=== PATIENT | female | born 1985 | race Caucasian/White ===

== ENCOUNTER → 2017-03-04 | Outpatient (CLI) | payer OTHER | LOC: FIMAGING 07:24 | PROVIDERS: ATTEND Obstetrics & Gynecology | DX: O35.8XX0 Maternal care for other (suspected) fetal abnormality and damage, not applicable or unspecified (principal); Z3A.21 21 weeks gestation of pregnancy ==

== ENCOUNTER 2017-07-11 18:51 | Inpatient (IN) | payer OTHER ==
[2017-07-11] MEDS ORDERED: OLIVE OIL 118 ML BTL MISC PRN (19:42)
[2017-07-11] MEDS ORDERED: OXYTOCIN 20 UNIT in LR 1,000 ML IV PRN (19:42)
[2017-07-11] MEDS ORDERED: MISOPROSTOL 200 MCG TAB PR PRN (19:42)
[2017-07-11] MEDS ORDERED: LR 1,000 ML IV PRN (19:42)
[2017-07-11] MEDS ORDERED: TERBUTALINE SULFATE 1 MG/ML VIAL IV PRN (19:42)
[2017-07-11] MEDS ORDERED: EPSOM SALT 454 GM TP PRN (19:42)
[2017-07-11] MEDS ORDERED: LR 500 ML IV PRN (23:11)
[2017-07-11] MEDS ORDERED: OXYTOCIN 30 UNIT in NS 500 ML IV SCH (23:15)
[2017-07-11 23:35] LABS: PLATELET COUNT 252 10^3/uL (150-400)
--- NOTE | 2017-07-11 23:41 | GHP ---
[f rep st] PREOP HISTORY AND PHYSICAL DATE OF ADMISSION: 07/11/2017 HISTORY UPON ADMISSION: The patient is a 31-year-old, G2, A1, at 39+ weeks' gestation with an estimated due date of 07/15/2017 established by an 8 week ultrasound that was not in agreement with her last menstrual period. The patient presents to Labor and Delivery complaining of spontaneous rupture of membranes at 5 a.m. The patient really has not had a regular contraction pattern at this point but has had contractions slowly building but irregular throughout the afternoon. They are still mild. The patient had some pink- tinged fluid earlier but not now. She has continued to have leakage throughout the day. Good movement. GBS culture was negative. HISTORY: The patient has been with [facility] since 8 weeks ' gestation. Patient had an ultrasound for confirmation of viability that identified the size/date discrepancy. The patient had thorough genetic testing early in the . Patient's 20 week ultrasound revealed a arrhythmia consistent with PACs. She had a followup ultrasound with [facility], which revealed normal anatomy and no sign of arrhythmia at the time. Estimated weight was the 51st percentile. Patient had choroid plexus cysts but these resolved spontaneously. Followup ultrasound at 31 weeks, due to marginal CI, showed 80th percentile estimated weight. The baby's right kidney appeared in the upper limits of normal size but otherwise reassuring. LABS: Maternal blood type B positive with negative antibody screen. RPR nonreactive. Rubella immune. Hepatitis B surface antigen negative. HIV negative. Thyroid has been tested several times in and this has been in the normal range. Parvo virus is immune. Initial hematocrit was 34%, in mid was 36%, with more recent check at 39%. Urinalysis and culture were negative. Pap smear normal. Gonorrhea and chlamydia negative. Verified testing was negative. One-hour Glucola normal. GBS culture was negative. 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 Abnormal Pap smear in college with colposcopy and negative Pap smear since. History of asthma as a child. Patient with a history of eating disorder, ages 11-13, as well as a history of anxiety and depression. Patient has a psychiatrist, Dr. Storm, here in town. She was on Effexor at the onset of but tapered down and stopped this by the second trimester. She has been feeling fine off medication. PAST FAMILY HISTORY: Significant for a cousin with spina bifida and a cousin with PKU. These were genetically assessed for with the standard carrier testing and were negative. PAST SURGICAL HISTORY: Odontectomy, D and C. PAST OBSTETRIC HISTORY: In December 2014, a partial molar , which was managed by a d and C. CURRENT MEDICATIONS: Synthroid 25 mcg a day, vitamins with iron, vitamin B6, additional iron supplement. ALLERGIES: The patient has no known drug allergies. SOCIAL HISTORY: The patient is , lives with her , Alcon. 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 Patient smoked but discontinued 10 years ago. Patient has had no alcohol during the and no illicit drug use. PHYSICAL EXAMINATION: GENERAL: Upon admission, the patient is a well-developed , well-nourished, white female, in no signs of physical discomfort, but does appear a little anxious. VITAL SIGNS: The patient is afebrile at 37.4, and blood pressure is 130s over 80s. See full details with nursing documentation. heart tones reveal baseline in the 140s with good variability and accelerations. No decelerations noted. Contractions are very irregular, from 5 -10 minutes, and palpably mild. Cervix was checked and the patient is 4 cm dilated and 90% at 0 station. Blood-tinged fluid. EXTREMITIES: Nontender with no edema. ASSESSMENT: Intrauterine at 39+ weeks' gestation, spontaneous rupture of membranes approximately 18 hours ago. GBS negative. Borderline blood pressures, but patient admits to being anxious. Will check - induced hypertension labs for reassurance and continue watching the blood pressure. Mild hypothyroidism, stable on Synthroid. History of anxiety and depression and has weaned off her Effexor. Patient knows she is at more risk for depression and will keep close followup with her psychiatrist. The patient had hoped for a natural progress of labor but one is not rapidly picked up after spontaneous rupture. The patient will try nipple stim and then begin Pitocin if no results. /[id number]/MODL MTDD
[2017-07-12] MEDS ORDERED: LIDOCAINE 1% 300 MG/30 ML SDV ONE (02:46)
[2017-07-12] MEDS ORDERED: TERBUTALINE SULFATE 1 MG/ML VIAL ONE (02:47)
[2017-07-12] MEDS ORDERED: OXYTOCIN 10 UNIT/ML VIAL ONE ×2 (02:47→17:03)
[2017-07-12] MEDS ORDERED: OLIVE OIL 118 ML BTL ONE (02:47)
[2017-07-12] MEDS ORDERED: MISOPROSTOL 200 MCG TAB ONE (02:47)
[2017-07-12] MEDS ORDERED: AMMONIA AROMATIC 1 EACH AMP IH ONE (02:47)
[2017-07-12] MEDS ORDERED: BUPIVACAINE 0.25% 30 ML SDV ONE (07:44)
[2017-07-12] MEDS ORDERED: PHENYLEPHRINE HCL 100 MCG/ML SYR ONE (07:44)
[2017-07-12] MEDS ORDERED: fentaNYL 100 MCG/2 ML INJ ONE (07:45)
--- NOTE | 2017-07-12 08:35 | PREANESOB ---
Obstetric Pre-Anesthesia Info - General Info Proposed Procedure: Labor and delivery with pitocin. : 2 Para: 0 ESTELLA: 07/14/17 Gestational Age: 39 week(s) and 4 day(s) - Info Status: Full Term Monitors: External FHR Pattern: Reassuring - Labor Status Cervical Dilation per last OB SVE: 4 Pitocin: In Use Indications for Labor Analgesia: Induction of Labor, Pain Control Labor Epidural: Proposed Anesthesia ROS: Prior D&C and wisdom teeth removal. Allergies/Adverse Reactions: Allergy/AdvReac Type Severity Reaction Status Date / Time No Known Allergies Allergy Unverified 12/31/14 06:27 Home Medications: Medication Instructions Recorded 1 tab PO DAILY 12/31/14 Iron,Carbonyl [Feosol] 1 tab PO DAILY 07/11/17 Levothyroxine [Synthroid 25 mcg 1 tab PO DAILY 07/11/17 (*)] Visit Medications: Generic Name Dose Route Start Last Admin Trade Name Freq PRN Reason Stop Dose Admin Lactated Ringer's 1,000 mls @ 0 mls/hr 07/11/17 19:42 07/12/17 02:07 Lr IV 07/12/17 19:41 1,000 mls PRN PRN Administration SEE PROTOCOL CONDITIONS Protocol Per Protocol Oxytocin 20 unit/ Lactated 1,002 mls @ 150 mls/hr 07/11/17 19:42 Ringer's IV PRN PRN Post- bleeding Lactated Ringer's 500 mls @ 500 mls/hr 07/11/17 23:11 Lr IV 07/12/17 23:11 PRN PRN Maternal Hypotension Oxytocin 30 unit/ Sodium 503 mls @ 0 mls/hr 07/11/17 23:15 07/12/17 02:07 Chloride IV 01/07/18 23:14 503 mls CONT LORETO Administration Protocol Per Protocol Ibuprofen 600 mg 07/11/17 19:42 Motrin PO 01/07/18 19:41 Q6HRS PRN post , inflammation Levothyroxine Sodium 25 mcg 07/12/17 09:00 Synthroid PO 01/08/18 08:59 DAILY LORETO Magnesium Sulfate 454 gm 07/11/17 19:42 Epsom Salt TP 01/07/18 19:41 Q1H PRN perineal discomfort Misoprostol 800 - 1,000 mcg 07/11/17 19:42 Cytotec WA ONCE PRN Vaginal Atony/Bleeding Risco Oil 118 ml 07/11/17 19:42 Sweet Oil MISC 01/07/18 19:41 ONCE PRN perineal massage Terbutaline Sulfate 0.25 mg 07/11/17 19:42 Brethine IV 01/07/18 19:41 ONCE PRN Tachysystole Discontinued Medications Generic Name Dose Route Start Last Admin Trade Name Freq PRN Reason Stop Dose Admin Ammonia (Aromatic Spirit) Confirm 07/12/17 02:47 Ammonia Aromatic Administered 07/12/17 02:48 Dose 1 each IH .STK-MED ONE Bupivacaine HCl Confirm 07/12/17 07:44 Sensorcaine 0.25% Sdv Administered 07/12/17 07:45 Dose 30 ml .ROUTE .STK-MED ONE Fentanyl Confirm 07/12/17 07:45 Sublimaze Administered 07/12/17 07:46 Dose 100 mcg .ROUTE .STK-MED ONE Lidocaine HCl Confirm 07/12/17 02:46 Lidocaine Hcl 1% Administered 07/12/17 02:47 Dose 300 mg .ROUTE .STK-MED ONE Misoprostol Confirm 07/12/17 02:47 Cytotec Administered 07/12/17 02:48 Dose 1,000 mcg .ROUTE .STK-MED ONE Risco Oil Confirm 07/12/17 02:47 Sweet Oil Administered 07/12/17 02:48 Dose 118 ml .ROUTE .STK-MED ONE Oxytocin Confirm 07/12/17 02:47 Pitocin Administered 07/12/17 02:48 Dose 40 unit .ROUTE .STK-MED ONE Phenylephrine HCl Confirm 07/12/17 07:44 Neosynephrine Administered 07/12/17 07:45 Dose 1,000 mcg .ROUTE .STK-MED ONE Terbutaline Sulfate Confirm 07/12/17 02:47 Brethine Administered 07/12/17 02:48 Dose 1 mg .ROUTE .STK-MED ONE - Anesthesia History Response to Local Anesthetics: Normal Anesthesia & Operative History: No Prior Problems Family Anesthesia History: Negative - Social History Substance Use/Abuse: Denies - Vital Signs Blood Pressure: 136/74 Heart Rate: 93 Height/Weight (Nursing): Height 154.94 cm Weight 80.286 kg - Focused Exam Neck exam: FROM Mallampati Score: Class 1 Mouth exam: normal dental/mouth exam Pulmonary: no respiratory distress Cardiovascular: regular rate and rhythym Labs: 07/11/17 23:00 07/11/17 23:00 Patient ABO/Rh B POSITIVE 07/11/17 23:00 Uric Acid 2.5 mg/dL (2.5-6.8) 07/11/17 23:00 Total Bilirubin 0.6 mg/dL (0.1-1.4) 07/11/17 23:00 Conjugated Bilirubin 0.3 mg/dL (0.0-0.5) 07/11/17 23:00 Unconjugated Bilirubin 0.3 mg/dL (0.0-1.1) 07/11/17 23:00 AST 23 IU/L (14-46) 07/11/17 23:00 ALT 27 IU/L (9-52) 07/11/17 23:00 Lactate Dehydrogenase 461 IU/L (313-618) 07/11/17 23:00 - Plan Anesthetic Plan: ORA Consent Signed and on Chart: Yes Patient/Guardian Understands and Agrees to Plan: Yes Urgent/Emergent Case: Brendon ortiz completed preop but documented later for safe timely pt care
[2017-07-12] MEDS ORDERED: ONDANSETRON 4 MG/2 ML VIAL IVP PRN (08:36)
[2017-07-12] MEDS ORDERED: PHENYLEPHRINE HCL 100 MCG/ML SYR IVP PRN (08:36)
--- NOTE | 2017-07-12 08:36 | POSTANESTH ---
Post Anesthetic Evaluation Cardiovascular Status: Normal, Stable, Similar to Pre-Op Cond Respiratory Status: Normal, Stable, Similar to Pre-op Cond. Level of Consciousness/Mental Status: Can Participate in Eval, Alert and Oriented Pain Control: Adequate, Prn Tx Ordered Nausea/Vomiting Control: Adequate, Prn Tx Ordered Complications Possibly Related to Anesthesia: None Noted
[2017-07-12] MEDS ORDERED: fentaNYL 2MCG/ML/BUP 0.1% RTU 100 ML EP SCH (09:00)
[2017-07-12] MEDS ORDERED: LR 500 ML IV SCH (09:00)
[2017-07-12] MEDS ORDERED: fentaNYL 200 MCG, BUPIVACAINE 0.5% 20 ML in NS 100 ML EP SCH (09:00)
--- NOTE | 2017-07-12 09:15 | OBPROG ---
Labor Progress Note Assessment/Plan: Assessment:cat 2 occasional lates will give fluid to assist decreased pitocin to 6 mu contractions q 2-3 tachsystole exam 7/100/0 denies pain epidural working well arom forebag bloody fluid Plan:expectant management 07/12/17 09:15 Subjective/Intrapartum Course: 07/12/17 09:12 Doing well feeling better after the epidural denies pain Objective: 07/11/17 23:00 07/11/17 23:00 Patient ABO/Rh B POSITIVE 07/11/17 23:00 Uric Acid 2.5 mg/dL (2.5-6.8) 07/11/17 23:00 Total Bilirubin 0.6 mg/dL (0.1-1.4) 07/11/17 23:00 Conjugated Bilirubin 0.3 mg/dL (0.0-0.5) 07/11/17 23:00 Unconjugated Bilirubin 0.3 mg/dL (0.0-1.1) 07/11/17 23:00 AST 23 IU/L (14-46) 07/11/17 23:00 ALT 27 IU/L (9-52) 07/11/17 23:00 Lactate Dehydrogenase 461 IU/L (313-618) 07/11/17 23:00 Temp Pulse Resp BP Pulse Ox 93 136/74 H 07/12/17 08:35 07/12/17 08:35 - SVE Dilation (cm): 7 Effacement (%): 100 Station: 0 Membranes: AROM, SROM Amniotic Fluid Color: Clear - Contraction Pattern Assessment Current Contraction Pattern: Regular - FHR Assessment [place] FHR (bpm): 135 FHR Pattern Variability: Moderate FHR Category: 2 - Procedures Non-surgical Procedures: Amniotomy Oxytocin Orders Assessment - Pre-Induction/Augmentation Assessment Gestational Age: 39 week(s) and 4 day(s) ICD10 Worksheet Patient Problems: Problems Problem Status Onset Rupture of membranes with clear amniotic fluid Acute
--- NOTE | 2017-07-12 11:32 | OBPROG ---
Labor Progress Note Assessment/Plan: Assessment:cat 2 decreased pitocin to 8 mu contractions q 2-3 tachsystole exam 10/100/+3 denies pain epidural working well febrile 38 degrees will begin pushing Plan:expectant management 07/12/17 09:15 07/12/17 11:30 Subjective/Intrapartum Course: 07/12/17 09:12 Doing well feeling better after the epidural denies pain Objective: 07/11/17 23:00 07/11/17 23:00 Patient ABO/Rh B POSITIVE 07/11/17 23:00 Uric Acid 2.5 mg/dL (2.5-6.8) 07/11/17 23:00 Total Bilirubin 0.6 mg/dL (0.1-1.4) 07/11/17 23:00 Conjugated Bilirubin 0.3 mg/dL (0.0-0.5) 07/11/17 23:00 Unconjugated Bilirubin 0.3 mg/dL (0.0-1.1) 07/11/17 23:00 AST 23 IU/L (14-46) 07/11/17 23:00 ALT 27 IU/L (9-52) 07/11/17 23:00 Lactate Dehydrogenase 461 IU/L (313-618) 07/11/17 23:00 Temp Pulse Resp BP Pulse Ox 93 136/74 H 07/12/17 08:35 07/12/17 08:35 - SVE Membranes: AROM, SROM Amniotic Fluid Color: Clear - Contraction Pattern Assessment Current Contraction Pattern: Regular - Procedures Non-surgical Procedures: Amniotomy Oxytocin Orders Assessment - Pre-Induction/Augmentation Assessment Gestational Age: 39 week(s) and 4 day(s) ICD10 Worksheet Patient Problems: Problems Problem Status Onset Rupture of membranes with clear amniotic fluid Acute
[2017-07-12] MEDS ORDERED: ACETAMINOPHEN 500 MG TAB PO ONE (12:00)
--- NOTE | 2017-07-12 13:48 | OBDEL ---
Info Type: Vaginal Presentation at Delivery: Vertex L&D Analgesia/Anesthesia Type: Epidural GBS+: No Intrapartum Medications: Generic Name Dose Route Start Last Admin Trade Name Freq PRN Reason Stop Dose Admin Lactated Ringer's 1,000 mls @ 0 mls/hr 07/11/17 19:42 07/12/17 02:07 Lr IV 07/12/17 19:41 1,000 mls PRN PRN Administration SEE PROTOCOL CONDITIONS Protocol Per Protocol Oxytocin 30 unit/ Sodium 503 mls @ 0 mls/hr 07/11/17 23:15 07/12/17 02:07 Chloride IV 01/07/18 23:14 503 mls CONT LORETO Administration Protocol Per Protocol Discontinued Medications Generic Name Dose Route Start Last Admin Trade Name Freq PRN Reason Stop Dose Admin Acetaminophen 1,000 mg 07/12/17 12:00 07/12/17 11:51 Tylenol PO 07/12/17 12:01 1,000 mg ONCE ONE Administration - Hospital Course Intrapartum: 07/12/17 09:12 Doing well feeling better after the epidural denies pain Indications for Delivery: Spontaneous Labor, SROM Vaginal Delivery - Delivery Provider Delivery Physician/CNM: Edwige Gonzáles Proctoring Provider: Nas Rachel - Labor and Delivery Onset of Contractions Date: 07/11/17 Onset of Contractions Time: 17:00 Onset of Contractions Type: Augmented Rupture of Membranes Date: 07/11/17 Rupture of Membranes Time: 05:00 Rupture of Membranes Type: Spontaneous Amniotic Fluid Color: Clear Dilation Complete Date: 07/12/17 Dilation Complete Time: 11:40 Placenta Delivery Date: 07/12/17 Placenta Delivery Time: 13:29 Total Hours of Labor: 20 Non-surgical Procedures: Amniotomy Laceration: 1st Degree Repair: 3-0, Vicryl Vaginal Sponge Count Correct: Yes Vaginal Needle Count Correct: Yes Vaginal Sweep Performed: No EBL: 350 Delivery Events: None - Medications Labor Augmentation/Induction Methods Used: Pitocin Data ESTELLA: 07/14/17 Gestational Age: 39 week(s) and 5 day(s) [place] Delivery Date: 07/12/17 Delivery Time: 13:24 Sex of Infant: Male Score (1 Min): 8 Score (5 Min): 8 ICD10 Worksheet Patient Problems: Problems Problem Status Onset Rupture of membranes with clear amniotic fluid Acute
[2017-07-12] MEDS ORDERED: HYDROCORTISONE 0.5% CREAM TP PRN (13:50)
[2017-07-12] MEDS ORDERED: DOCUSATE SODIUM 100 MG CAP PO PRN (13:50)
[2017-07-12] MEDS ORDERED: ACETAMINOPHEN 325 MG TAB PO PRN (13:50)
[2017-07-12] MEDS ORDERED: SIMETHICONE 80 MG TAB CHEW PO PRN (13:50)
[2017-07-12] MEDS ORDERED: HYDROCODONE/APAP 5/325 TAB PO PRN (13:50)
[2017-07-12] MEDS: IBUPROFEN 600 MG TAB PO PRN ×2 (14:47→21:34)
[2017-07-12] MEDS: LEVOTHYROXINE 25 MCG TAB PO SCH (16:12)
[2017-07-12] MEDS ORDERED: METHYLERGONOVINE MAL 0.2 MG/ML INJ ONE ×2 (17:03→17:06)
--- NOTE | 2017-07-12 17:24 | SOAPPROG ---
SOAP Progress Note Assessment/Plan: Assessment:pp hemorrhage 900cc measured blood loss PP tachycardic 114 pitocin infusing at 250cc per hour bag number 2 ffu-2 with assessment after blood loss cbc in am Plan:methergine 0.2mg po q4h, cytotec 800mcg per rectum x1 07/12/17 09:15 07/12/17 11:30 07/12/17 17:21 Objective: Vital Signs Temp Pulse Resp BP Pulse Ox 93 136/74 H 07/12/17 08:35 07/12/17 08:35 Laboratory Results 07/11/17 23:00 07/11/17 23:00 07/11/17 07/12/17 07/13/17 05:59 05:59 05:59 Output Total 700 Balance -700 Physical Exam - Physical Exam General Appearance: WD/WN, alert, no apparent distress Cardiac/Chest: regular rate, rhythm, tachycardia Pelvic Exam: vaginal bleeding (scant after clots removed) Skin: warm/dry Extremities: normal range of motion Neuro/Psych: no motor/sensory deficits, alert, normal mood/affect, oriented x 3 ICD10 Worksheet Patient Problems: Problems Problem Status Onset Rupture of membranes with clear amniotic fluid Acute
[2017-07-12] MEDS ORDERED: MISOPROSTOL 200 MCG TAB PR ONE (17:30)
[2017-07-12] MEDS: METHYLERGONOVINE MAL 0.2 MG TAB PO SCH ×2 (17:34→21:34)
[2017-07-13] MEDS: METHYLERGONOVINE MAL 0.2 MG TAB PO SCH ×4 (01:23→15:34)
[2017-07-13] MEDS: IBUPROFEN 600 MG TAB PO PRN ×3 (03:34→21:17)
[2017-07-13] MEDS ORDERED: AMMONIA AROMATIC 1 EACH AMP IH ONE (05:45)
[2017-07-13 05:59] LABS: PLATELET COUNT 202 10^3/uL (150-400)
--- NOTE | 2017-07-13 09:21 | OBPP ---
Progress Note Assessment/Plan: Assessment: 32 y/o s/p at 39 weeks ega PPD#1 Total EBL 1250 ( had PP hemorrhage yesterday of 900 cc-with overdistended bladder - resolved with cytotec, methergine, 2nd IV bag of pitocin) HCT 39 this am 1st degree laceration Prolonged ROM - > 24 hours Baby in NICU Plan: Routine pp care Will start daily ferrous sulfate DC IV this afternoon if bleeding remains stable Pain medication as needed Plan discharge tomorrow 07/13/17 10:27 07/13/17 10:30 07/13/17 10:34 Subjective/ Course: Patient is doing well this morning. Reports lochia to be light, pain controlled with oral medication, tolerating regular diet and voiding. Baby in NICU but doing well- going well. 07/13/17 10:37 Objective: 07/13/17 05:45 07/11/17 23:00 Patient ABO/Rh B POSITIVE 07/11/17 23:00 Uric Acid 2.5 mg/dL (2.5-6.8) 07/11/17 23:00 Total Bilirubin 0.6 mg/dL (0.1-1.4) 07/11/17 23:00 Conjugated Bilirubin 0.3 mg/dL (0.0-0.5) 07/11/17 23:00 Unconjugated Bilirubin 0.3 mg/dL (0.0-1.1) 07/11/17 23:00 AST 23 IU/L (14-46) 07/11/17 23:00 ALT 27 IU/L (9-52) 07/11/17 23:00 Lactate Dehydrogenase 461 IU/L (313-618) 07/11/17 23:00 Temp Pulse Resp BP Pulse Ox 36.6 C 110 H 16 111/74 96 07/13/17 03:39 07/13/17 03:39 07/13/17 03:39 07/13/17 03:39 07/13/17 03:39 VSS Respirations unlabored Extremities with minimal edema Lochia small - has been stable overnight Fundus firm Perineum healing well - well approximated Nipples intact Uterine Position/Fundal Height: Umbilicus -1 Uterine Tone: Firm Physical Exam - Physical Exam EENT: PERRL/EOMI Neck: full range of motion Respiratory: lungs clear, normal breath sounds Cardiac/Chest: regular rate, rhythm Extremities: normal range of motion Skin: normal color, warm/dry Neuro/Psych: alert, normal mood/affect, oriented x 3
[2017-07-13] MEDS: LEVOTHYROXINE 25 MCG TAB PO SCH (09:29)
[2017-07-13] MEDS: FERROUS SULFATE 325 MG TAB PO SCH (11:51)
[2017-07-13] MEDS ORDERED: METHYLERGONOVINE MAL 0.2 MG TAB PO ONE (15:45)
[2017-07-14] MEDS: LEVOTHYROXINE 25 MCG TAB PO SCH (06:33)
--- NOTE | 2017-07-14 09:24 | OBPP ---
Progress Note Assessment/Plan: Assessment: Plan: Subjective/ Course: Patient is doing well this morning. Reports lochia to be light, pain controlled with oral medication, tolerating regular diet and voiding. Baby in NICU but doing well- going well. 07/13/17 10:37 Objective: 07/13/17 05:45 07/11/17 23:00 Patient ABO/Rh B POSITIVE 07/11/17 23:00 Uric Acid 2.5 mg/dL (2.5-6.8) 07/11/17 23:00 Total Bilirubin 0.6 mg/dL (0.1-1.4) 07/11/17 23:00 Conjugated Bilirubin 0.3 mg/dL (0.0-0.5) 07/11/17 23:00 Unconjugated Bilirubin 0.3 mg/dL (0.0-1.1) 07/11/17 23:00 AST 23 IU/L (14-46) 07/11/17 23:00 ALT 27 IU/L (9-52) 07/11/17 23:00 Lactate Dehydrogenase 461 IU/L (313-618) 07/11/17 23:00 Temp Pulse Resp BP Pulse Ox 36.3 C 96 16 116/75 98 07/13/17 20:00 07/13/17 20:00 07/13/17 20:00 07/13/17 20:00 07/13/17 20:00
[2017-07-14] MEDS: IBUPROFEN 600 MG TAB PO PRN ×2 (10:17→16:32)
[2017-07-14] MEDS: FERROUS SULFATE 325 MG TAB PO SCH (10:17)
--- NOTE | 2017-07-14 10:31 | OBPP ---
Progress Note Assessment/Plan: Assessment:32 yo PPD#2 s/p in setting of PROM > 24 hours, and pp hemorrhage, HCT stable - mild anemia Plan: DC to home/boarding, pp cares reviewed. FU plan reviewed. Signs of pp depression reviewed. See dc summary. Cont iron. 07/14/17 10:28 07/14/17 10:33 Subjective/ Course: Patient is doing well this morning. Reports lochia to be light, pain controlled with oral medication, tolerating regular diet and voiding. Baby in NICU but doing well- going well. 07/13/17 10:37 07/14/17 10:30 Pt doing well. Has some difficulty recognizing the urge to void, but seems to be improving, since had episode of retention yesterday. Denies lightheadedness or dizziness. going well. Baby doing well in NICU. Objective: 07/13/17 05:45 07/11/17 23:00 Patient ABO/Rh B POSITIVE 07/11/17 23:00 Uric Acid 2.5 mg/dL (2.5-6.8) 07/11/17 23:00 Total Bilirubin 0.6 mg/dL (0.1-1.4) 07/11/17 23:00 Conjugated Bilirubin 0.3 mg/dL (0.0-0.5) 07/11/17 23:00 Unconjugated Bilirubin 0.3 mg/dL (0.0-1.1) 07/11/17 23:00 AST 23 IU/L (14-46) 07/11/17 23:00 ALT 27 IU/L (9-52) 07/11/17 23:00 Lactate Dehydrogenase 461 IU/L (313-618) 07/11/17 23:00 Temp Pulse Resp BP Pulse Ox 36.3 C 96 16 116/75 98 07/13/17 20:00 07/13/17 20:00 07/13/17 20:00 07/13/17 20:00 07/13/17 20:00 gen - pleasant, NAD CV - RRR chest - CTAB abd - soft, +BS, fundus firm NT u-3 ext - 2+ pitting edema BLE, calves NT perineum - intact, sutures intact, min edema, mod lochia on pad Uterine Position/Fundal Height: Umbilicus -3 Uterine Tone: Firm
--- NOTE | 2017-07-14 10:39 | OBGCSDC ---
General Delivery Information - General Info : 2 Para: 1 Abortions: 0 Type: Vaginal L&D Analgesia/Anesthesia Type: Epidural, Spinal Admission Date: 07/11/17 Labs: Patient ABO/Rh B POSITIVE 07/11/17 23:00 Hct 29.9 % (38.0-47.0) L 07/13/17 05:45 - Hospital Course Intrapartum: 07/12/17 09:12 Doing well feeling better after the epidural denies pain : Patient is doing well this morning. Reports lochia to be light, pain controlled with oral medication, tolerating regular diet and voiding. Baby in NICU but doing well- going well. 07/13/17 10:37 07/14/17 10:30 Pt doing well. Has some difficulty recognizing the urge to void, but seems to be improving, since had episode of retention after delivery. Denies lightheadedness or dizziness. going well. Baby doing well in NICU. 07/14/17 10:39 Vaginal - Delivery Provider Delivery Physician/CNM: Edwige Gonzáles - Diagnosis Labor: Augmented Rupture of Membranes Type: Spontaneous Amniotic Fluid Color: Clear Laceration: 1st Degree Repair: 3-0, Vicryl Delivery Events: None - Procedures Non-surgical Procedures: Amniotomy - Delivery Non-surgical Procedures: Amniotomy EBL: 350 [place] Data ESTELLA: 07/14/17 Gestational Age: 40 week(s) and 0 day(s) More[place] Delivery Date: 07/12/17 Delivery Time: 13:24 Sex of : Male [place] Weight (gm): 3588 g Score (1 Min): 7 Score (5 Min): 8 Discharge Information - Discharge Information Condition: Good
[2017-07-14 13:30] VITALS: BP 116/79
== END 2017-07-14 18:45 | disposition home or self-care (01) | DRG 774 ==
LOC: UNDOADMIN 18:51 → FLD 18:51 → FNSY 18:51 → FLD 21:06 → FOB 07-12 15:30
PROVIDERS: ADMIT Obstetrics & Gynecology; ATTEND Obstetrics & Gynecology
PROC: 3E0P7GC Introduction of Other Therapeutic Substance into Female Reproductive, Via Natural or Artificial Opening (ICD-10-PCS; principal; 2017-07-11)
PROC: 10E0XZZ Delivery of Products of Conception, External Approach (ICD-10-PCS; principal; 2017-07-11)
PROC: 10907ZC Drainage of Amniotic Fluid, Therapeutic from Products of Conception, Via Natural or Artificial Opening (ICD-10-PCS; principal; 2017-07-11)
PROC: 0HQ9XZZ Repair Perineum Skin, External Approach (ICD-10-PCS; principal; 2017-07-11)
DX: O70.0 First degree perineal laceration during delivery (principal); O42.02 Full-term premature rupture of membranes, onset of labor within 24 hours of rupture; O72.1 Other immediate postpartum hemorrhage; O99.284 Endocrine, nutritional and metabolic diseases complicating childbirth; E03.9 Hypothyroidism, unspecified; O99.344 Other mental disorders complicating childbirth; F41.9 Anxiety disorder, unspecified; Z3A.39 39 weeks gestation of pregnancy; Z37.0 Single live birth
CPT/HCPCS: J2210; J2370; J2590; J3010; J3105